=== PATIENT | female | born 1990 | race Caucasian/White ===

== ENCOUNTER 2019-02-28 20:32 | Emergency (ER) | payer MEDICAID ==
[~2019-02-28] VITALS: Ht 162.6 cm; Wt 61.2 kg
[2019-02-28 20:39] VITALS: BP 112/59
--- NOTE | 2019-02-28 20:39 | NUR ---
TO BED # 03 AMBULATORY
--- NOTE | 2019-02-28 20:50 | NUR ---
28 Y/O F, 17 WEEKS , PRESENTED TO ED WITH C/O FEVER AND GENERALIZED BODY X1 DAY. AAO X4. SELF-MEDICATED WITH TYLENOL, NOT EFFECITIVE. 5/10 PAIN, BODY ACHES. +N/V, VOMITTED X1. PER PT "NAUSEA AND VOMITTING IS NORMAL DUE TO ." SKIN PINK AND WARM. FAMLY AT BEDSIDE. ERMD NOTIFIED. WILL CONTINUE TO MONITOR. -COOLING MEASURES INTIATED
[2019-02-28] MEDS ORDERED: ACETAMINOPHEN 325 MG TAB PO ONE (21:35)
[2019-02-28] MEDS ORDERED: NACL 0.9% 1,000 ML IV ONE (21:35)
[2019-02-28 21:54] LABS: BASOPHILS % (AUTO) 0.4 % (0.0-2.0); EOSINOPHILS % (AUTO) 0.1 % (0.0-4.0); HEMOGLOBIN 12.1 g/dL (12.0-16.0); LYMPHOCYTES # (AUTO) 1.2 K/uL (2.5-16.5); LYMPHOCYTES % (AUTO) 10.1 % (20.5-51.1); MEAN CORPUSCULAR HEMOGLOBIN 31 pg (27-31); MEAN CORPUSCULAR HGB CONC 34 g/dL (33-37); MEAN CORPUSCULAR VOLUME 91.6 fL (80-94); MONOCYTES # (AUTO) 0.7 K/uL (0.8-1.0); MONOCYTES % (AUTO) 6.3 % (1.7-9.3); NEUTROPHILS # (AUTO) 9.8 K/uL (1.8-7.7); NEUTROPHILS % (AUTO) 83.1 % (42.2-75.2); PLATELET COUNT (AUTO) 250 K/uL (140-450); RED BLOOD CELL COUNT(AUTO) 3.93 MIL/uL (4.20-5.40); RED CELL DISTRIBUTION WIDTH 14.1 % (11.6-13.7); WHITE BLOOD COUNT (AUTO) 11.7 K/uL (4.8-10.8)
[2019-02-28 22:11] LABS: ANION GAP 11.4 (8-16); CARBON DIOXIDE 24.2 mmol/L (21-32); CREATININE 0.5 mg/dL (0.6-1.3); POTASSIUM 3.6 mmol/L (3.5-5.1)
[2019-02-28 22:16] LABS: ALBUMIN 2.8 g/dL (3.4-5.0); TOTAL BILIRUBIN 0.2 mg/dL (0.0-1.0)
[2019-02-28 23:25] VITALS: BP 116/61
--- NOTE | 2019-02-28 23:25 | NUR ---
Patient discharged with v/s stable. Written and verbal after care instructions given and explained. Patient verbalized understanding. Ambulatory with steady gait. All questions addressed prior to discharge. Advised to follow up with PMD.
== END 2019-02-28 23:25 | disposition home or self-care (01) ==
LOC: MED 20:32
DX: O26.892 Other specified pregnancy related conditions, second trimester (principal); B34.9 Viral infection, unspecified; Z3A.18 18 weeks gestation of pregnancy
CPT/HCPCS: 36415; 80053; 81025; 85025; 87804; 99283; J7030; 81003

== ENCOUNTER 2021-02-17 19:22 | Emergency (ER) | payer MEDICAID ==
[~2021-02-17] VITALS: Ht 162.6 cm; Wt 59.0 kg
[2021-02-17 19:33] VITALS: BP 111/72
[2021-02-17] MEDS ORDERED: ACETAMINOPHEN EXTRA STRENGTH 500 MG TAB PO ONE (19:40)
--- NOTE | 2021-02-17 19:45 | NUR ---
RECEIVED IN BED 2, WITH CHIEF COMPLAINT OF JAW PAIN, FEVER. NO ACUTE DISTRESS. PMH: NONE ALLERGIES: NKA
--- NOTE | 2021-02-17 21:25 | NUR ---
FLU SWAB OBTAINED. TAKEN TO LAB.
[2021-02-17] MEDS ORDERED: METOCLOPRAMIDE 10 MG/2 ML INJ VIAL IM ONE (22:35)
[2021-02-17] MEDS ORDERED: KETOROLAC 15 MG/ML VIAL IM ONE (22:35)
[2021-02-17 23:59] VITALS: BP 132/68
--- NOTE | 2021-02-17 23:59 | NUR ---
EXAM RESULTS RETURNED, REVIEWED, READY FOR DISCHARGEPatient discharged with v/s stable. Written and verbal after care instructions given and explained. Patient verbalized understanding. Ambulatory with steady gait. All questions addressed prior to discharge. Advised to follow up with PMD.
== END 2021-02-17 23:59 | disposition home or self-care (01) ==
LOC: MED 19:22
DX: B34.9 Viral infection, unspecified (principal); Z20.822 Contact with and (suspected) exposure to COVID-19
CPT/HCPCS: 71045; 87426; 87804; 93005; 96372; 99285; J1885; J2765

== ENCOUNTER 2022-04-04 19:00 | Emergency (ER) | payer MEDICAID ==
[~2022-04-04] VITALS: Ht 162.6 cm; Wt 59.0 kg
[2022-04-04 19:31] VITALS: BP 105/66
--- NOTE | 2022-04-04 22:35 | NUR ---
Called first time- no show in lobby or outside.
--- NOTE | 2022-04-04 22:43 | NUR ---
Called second time- no show in lobby or outside.
--- NOTE | 2022-04-04 23:09 | NUR ---
PATIENT LEFT WITHOUT BEING SEEN BY DR. Phillips. NO FURTHER CARE PROVIDED FOR PATIENT.
== END 2022-04-04 23:09 | disposition left against medical advice (07) ==
LOC: MED 19:00
DX: M79.644 Pain in right finger(s) (principal); Z53.21 Procedure and treatment not carried out due to patient leaving prior to being seen by health care provider